=== PATIENT | male | born 1995 | race Caucasian/White ===

== ENCOUNTER 2020-08-21 17:00 | Outpatient (REF) | payer OTHER, SELFPAY | END 2020-08-21 17:01 | disposition home or self-care (01) | LOC: HO.LAB 17:00 | PROVIDERS: PCP Internal Medicine; Visit Provider Internal Medicine | DX: Z20.828 Contact with and (suspected) exposure to other viral communicable diseases (principal) | CPT/HCPCS: C9803; U0003 ==

== ENCOUNTER 2020-08-26 14:53 | Outpatient (REF) | payer OTHER, SELFPAY | END 2020-08-26 14:54 | disposition home or self-care (01) | LOC: HO.LAB 14:53 | PROVIDERS: Visit Provider Internal Medicine | DX: Z20.828 Contact with and (suspected) exposure to other viral communicable diseases (principal) | CPT/HCPCS: 36415; C9803; U0003 ==

== ENCOUNTER 2020-11-27 13:00 | Outpatient (RCR) | payer OTHER, SELFPAY ==
--- NOTE | 2020-10-15 12:18 | MHC.PT.OD ---
[facility] [place] [facility] [place] [facility] [place] [facility] [address] Constance Marc [address] [phone] F: [phone] F: [phone] F: [phone] F: [phone] Physical Therapy Daily Note Diagnosis: Pain in left hip and low back pain referred from [facility] on 09/22/20 M25.552, M54.5 Date of Surgery: Date of Evaluation: 09/26/20 Date of Treatment: 10/15/20 Treatments to Date: 6 Cancellations to Date: No Shows to Date: Authorized Visits: 8 Insurance End Date: Precautions/ Contraindications:history of SVT and anxiety Subjective: Reports had some central lower back pain 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 Verbalizes improvement in the frequency of his low back pain since start of care. He demonstrated and showcases compliance with his HEP. Pain Score and Location: reports 0 pain today Objective Flowsheet: Tests & Measures Lumbar AROM Flexion 75%, Extension 75%, Sidebending 75% L>R some report of pt questioning abdominal concerns intermittently through the day Therapist encouraged pt to follow up with his PCP regarding this. Functional squat: Able to maintain neutral core and recruit abdominals, however pt challenged with maintaining his weight posteriorly and loses his balance when squatting deeper than 45 degrees. (+)Lumbar instability persists L>R Hip ext strength L 4/5, R 4/5 Hip abd strength L 4/5, R 4/5 He is now able to prone plank on forearms for 20 seconds without pain. His gait is nonantalgic and denies sleep disturbance secondary to pain. Reports pain with prolonged sitting but has verbalized increased awareness of his posture, therefore stating reduction a reduction overall. Exercises Seated on upright bike four clicks up x 10 minutes level 2.5 for aerobic warm-up Functional squat lifting/education with box lifts from waist height to floor height first with 19# x 5R and then progressed to 26# x5Reps Reviewed functional squat technique, abdominal brace, hip hinge, and neutral core spine, recruitment scap stabilizers, mechanics. Bridge over pball with upper back on ball with arms crossed across chest x 5R, and then with arms in shoulder flexion x 5R. Mountain climbers x 2 minutes with cues for core recruitment. Review of plank as HEP component. Standing hip abd crab walks with blue band around thighs x 2 sets 10R, Standing hip abd toe tapes with blue theraband around thigh with dynamic ball toss from therapist to improve dynamic ability. Pt reports cold toes and fingers with change in color he ? normalcy of this Pt advised to bring up to PCP ? Raynauds Body mechanics in regards to lifting/squatting with simulated task of picking up wood reviewed mechanics and goals of ways to reduce stress Discussed what to look for in supportive sneaker/footwear comfort, good arch support, Issued HEP sheets blue band for PT see chart Modalities Assessment: Pt challenged with maintaining good mechanics of functional squat without support from wall. Pt has received 6/8 sessions since start of care. He has been implemented in a flexibility program and core/hip stab program. He continues to report challenge and increased back pain with previous attempt of lifting machinery since time of last session. His ROM in the spine is now functional; he continues to demonstrate (+) lumbar instability testing and would benefit from further progression of dynamic stabilization to meet his LTG. He demonstrates muscle fatigue quickly with dynamic tasks and inquires if this is normal. He demonstrates elevated anxiety levels and requires encouragement and repeated education throughout his treatment. He states that although he came off of anxiety medication four years ago he questions if he may benefit from it again as his anxiety is worsening. He was advised to follow up with his PCP to address this as well as to address questions he has regarding his variable stomach pains. Pt would benefit from an additional 2x/week x 3 weeks (6 visits) beyond his initial 8 visits he was approved for in effort to meet his listed goals. Pt is improving awareness of his core recruitment; he continues to lack full strength in hip ext/hip abd B. Prior to lifting episode in between time of last session, pt was reporting overall improvement in his pain levels and verbalized today, I can tell Im getting stronger, there is no way I could have lifted that crate before. Pt stated he will have his lifting ability challenged later today as he is in the process of moving and will have to carry a parsons sized mattress up a flight of stairs. We reviewed lifting mechanics to address this concern. PT Plan: 2x/week x 3 weeks with emphasis on progression towards dynamic core/hip stabilization program with HEP, body mechanics education. Short Term Goals: 1. Pt will demonstrate functional squat with good technique/mechanics. (Improving upon, challenged >45 degrees). 2. Pt will demonstrate hip ext strength 4+/5 B. (4/5 B) 3. Strength hip abd 4+/5 B. (4/5 B) 4. Reduce back pain by 25% during ADLS/IADLS. (MET) Correction Goals: 1. I HEP with good carryover/technique. (Working on advancing HEP). 2. Negative lumbar instability testing. (+) testing) 3. Strength hip abd 5/5 B. see strength above 4. Strength hip ext 5/5 B. see strength above 5. Reduce back pain presence by 75% in ADLS/IADLS. Electronically signed by: Arianna Funez, PT, DPT
== END 2020-12-16 12:40 | disposition other institution (70) ==
LOC: HO.PTWFD 13:00
PROVIDERS: Visit Provider Internal Medicine
DX: M25.552 Pain in left hip (principal); M54.5 Low back pain
CPT/HCPCS: 97110; 97161; 97530; 97535

== ENCOUNTER 2020-12-18 12:40 | Outpatient (REF) | payer OTHER, SELFPAY ==
--- NOTE | ~2020-12-18 | XR_ITS ---
EXAMINATION: XR WRIST, LEFT CLINICAL INFORMATION: Left wrist pain. COMPARISON: None. TECHNIQUE: 4 views of the left wrist. FINDINGS: There is no evidence of acute fracture or dislocation of the left wrist. No destructive bony lesions. There is some mild soft tissue prominence seen about the ulnar aspect of the distal ulna. XR/XR wrist LT min 3V IMPRESSION: No significant bony abnormality of the left wrist.
[2020-12-18 13:41] LABS: MANUAL DIFF FLAG NO
[2020-12-18 13:47] LABS: Basophils Percent Auto 0.5 % (0-2); Eosinophils Absolute Auto 0.1 X10*3/uL (0.0-0.4); Eosinophils Percent Auto 1.2 % (0-4); Hemoglobin 14.2 g/dl (14.0-18.0); Imm Gran Abs Auto 0.02 X10*3/uL (0.00-0.03); Imm Gran Pct Auto 0.3 % (0.0-0.4); Lymphocytes Absolute Auto 1.6 X10*3/uL (1.2-4.9); Mean Corpuscular Hemoglobin 30.4 pg (27.0-33.0); Mean Corpuscular Volume 92.1 fL (80-98); Mean Platelet Volume 9.4 fL (9.4-12.4); Monocytes Absolute Auto 0.5 X10*3/uL (0.1-1.2); Monocytes Percent Auto 6.9 % (2-11); Neutrophils Absolute Auto 4.3 X10*3/uL (2.0-8.3); Neutrophils Percent Auto 66.1 % (45-73); Platelet Count 261 X10*3/uL (160-400); Red Blood Count 4.67 X10*6/uL (4.60-5.80); White Blood Count 6.6 X10*3/uL (4.8-10.8)
[2020-12-18 14:09] LABS: Alanine Aminotransferase 18 U/L (0-40); Albumin Level 4.8 g/dL (3.5-5.0); Alkaline Phosphatase 26 U/L (39-117); Anion Gap 14 (12-20); Aspartate Amino Transferase 15 U/L (5-37); Bilirubin Total 0.6 mg/dL (0.0-1.0); Blood Urea Nitrogen 16 mg/dL (9-16); Calcium 9.6 mg/dL (8.4-10.2); Carbon Dioxide 26 mmol/L (22-29); Chloride 104 mmol/L (96-108); Cholesterol 197 mg/dL; Estimated Glomerular Filt Rate > 60; Glucose Random 99 mg/dL (60-115); Potassium 3.6 mmol/L (3.3-5.1); Sodium 140 mmol/L (135-145); Total Protein 7.5 g/dL (6.5-8.0)
[2020-12-18 14:30] LABS: TSH reflex Free T4 1.15 uIU/mL (0.32-4.0)
== END 2020-12-18 12:41 | disposition home or self-care (01) ==
LOC: HO.LAB 12:40
PROVIDERS: PCP Internal Medicine; Visit Provider Internal Medicine
DX: Z00.00 Encounter for general adult medical examination without abnormal findings (principal); E66.3 Overweight; I47.1 Supraventricular tachycardia; M25.532 Pain in left wrist; Z91.81 History of falling
CPT/HCPCS: 36415; 73110; 80053; 82465; 84443; 85025

== ENCOUNTER 2020-12-20 18:08 | Outpatient (REF) | payer OTHER, SELFPAY ==
[2020-12-20 18:14] LABS: Glucose Urine UA NEG (NEG); Leukocyte Esterase Urine NEG (NEG); Nitrite Urine NEG (NEG); Urine Blood NEG (NEG); Urine Ketones NEG (NEG); Urine Protein NEG (NEG-TRACE)
[2020-12-20 18:16] LABS: Appearance Urine CLEAR; Color Urine YELLOW
== END 2020-12-20 18:09 | disposition home or self-care (01) ==
LOC: HO.LNP 18:08
PROVIDERS: Visit Provider Internal Medicine
DX: Z00.00 Encounter for general adult medical examination without abnormal findings (principal)
CPT/HCPCS: 81003

== ENCOUNTER 2022-05-05 13:34 | Outpatient (REF) | payer OTHER, SELFPAY ==
--- NOTE | ~2022-05-05 | XR_ITS ---
EXAMINATION: XR DORSAL SPINE XR LUMBOSACRAL SPINE CLINICAL INFORMATION: Low back pain, dorsalgia. COMPARISON: None TECHNIQUE: 3 views of the dorsal spine. 3 views lumbosacral spine. FINDINGS: DORSAL SPINE: Vertebral bodies normally aligned with normal height. Disc spaces normal. Surrounding bone and soft tissues unremarkable. LUMBOSACRAL SPINE: Vertebral bodies normally aligned. There is a transitional lumbosacral junction with what appears to be a partially lumbarized S1 vertebra with a rudimentary disc at the S1-S2 level. Disc spaces otherwise normal. Facets normal. No fracture or bone lesion. Surrounding bone and soft tissues unremarkable. XR/XR lumbar spine 2-3V IMPRESSION: No acute or degenerative change in the dorsal spine or lumbosacral spine.
--- NOTE | ~2022-05-05 | XR_ITS ---
EXAMINATION: XR DORSAL SPINE XR LUMBOSACRAL SPINE CLINICAL INFORMATION: Low back pain, dorsalgia. COMPARISON: None TECHNIQUE: 3 views of the dorsal spine. 3 views lumbosacral spine. FINDINGS: DORSAL SPINE: Vertebral bodies normally aligned with normal height. Disc spaces normal. Surrounding bone and soft tissues unremarkable. LUMBOSACRAL SPINE: Vertebral bodies normally aligned. There is a transitional lumbosacral junction with what appears to be a partially lumbarized S1 vertebra with a rudimentary disc at the S1-S2 level. Disc spaces otherwise normal. Facets normal. No fracture or bone lesion. Surrounding bone and soft tissues unremarkable. XR/XR thoracic spine 3V IMPRESSION: No acute or degenerative change in the dorsal spine or lumbosacral spine.
[2022-05-05 14:31] LABS: MANUAL DIFF FLAG NO
[2022-05-05 14:46] LABS: Basophils Percent Auto 0.5 % (0-2); Eosinophils Percent Auto 0.3 % (0-4); Hematocrit 45.1 % (42.0-52.0); Hemoglobin 15.3 g/dl (14.0-18.0); Imm Gran Abs Auto 0.03 X10*3/uL (0.00-0.03); Imm Gran Pct Auto 0.5 % (0.0-0.4); Lymphocytes Absolute Auto 1.7 X10*3/uL (1.2-4.9); Lymphocytes Percent Auto 27.5 % (20-40); Mean Corpuscular HGB Conc 33.9 g/dl (31.0-36.0); Mean Corpuscular Hemoglobin 30.5 pg (27.0-33.0); Mean Corpuscular Volume 89.8 fL (80.0-98.0); Mean Platelet Volume 8.7 fL (9.4-12.4); Monocytes Absolute Auto 0.6 X10*3/uL (0.1-1.2); Monocytes Percent Auto 8.9 % (2-11); Neutrophils Absolute Auto 3.9 x10*3/uL (2.0-8.3); Neutrophils Percent Auto 62.3 % (45-73); Platelet Count 352 X10*3/uL (160-400); Red Blood Count 5.02 X10*6/uL (4.60-5.80); Red Cell Distribution Width 12.8 % (11.0-16.0); White Blood Count 6.3 X10*3/uL (4.8-10.8)
[2022-05-05 15:09] LABS: Alanine Aminotransferase 25 U/L (0-40); Alkaline Phosphatase 32 U/L (39-117); Anion Gap 16 (12-20); Aspartate Amino Transferase 22 U/L (5-37); Bilirubin Total 0.3 mg/dL (0.0-1.0); Blood Urea Nitrogen 14 mg/dL (9-16); C Reactive Protein 0.14 mg/dL (< or = 0.50); Calcium 10.2 mg/dL (8.4-10.2); Carbon Dioxide 27 mmol/L (22-29); Chloride 102 mmol/L (96-108); Estimated Glomerular Filt Rate > 60; Glucose Random 95 mg/dL (60-115); Potassium 4.1 mmol/L (3.3-5.1); Sodium 141 mmol/L (135-145); Total Protein 8.2 g/dL (6.5-8.0)
[2022-05-05 16:57] LABS: Erythrocyte Sedimentation Rate 6 MM/HR (0-15)
[2022-05-06 10:39] LABS: Appearance Urine Clear; Color Urine Yellow; Glucose Urine UA Negative (Negative); Leukocyte Esterase Urine Small (1+) (Negative); Nitrite Urine Negative (Negative); UMIC TRIGGER UACC YES; Urine Blood Negative (Negative); Urine Ketones Negative (Negative); Urine Protein Negative (Neg-Trace)
[2022-05-06 10:46] LABS: Bacteria Urine None Seen (None Seen); Hyaline Casts Urine 0-2 /LPF (0-2); RBC Urine 0-2 /HPF (0-2); Squamous Epithelial Cell Urine 0-2 /HPF (0-2); UACC Culture Trigger YES
[2022-05-08 05:21] LABS: Lyme Abs Screen <0.90 index
[2022-05-09 14:27] LABS: CK-BB None Detected (None Detected); CK-MB 0 % (<5); CK-MM 100 % (95-100); Creatine Kinase,Total,Serum 231 U/L (44-196)
== END 2022-05-05 13:35 | disposition home or self-care (01) ==
LOC: HO.XRAY 13:34
PROVIDERS: PCP Internal Medicine; Visit Provider Internal Medicine
DX: M54.50 Low back pain, unspecified (principal); M25.50 Pain in unspecified joint; M54.6 Pain in thoracic spine
CPT/HCPCS: 36415; 72072; 72100; 80053; 81001; 82552; 85025; 85652; 86140; 86617; 86618; 87086